=== PATIENT | female | born 1965 | race Hispanic/Latino ===

== ENCOUNTER → 2019-06-19 | Outpatient (CLI) | payer BC ==
--- NOTE | 2019-06-19 18:58 | REP ---
Right wrist four views: There is an impacted fracture of the distal radius. There is no dislocation. Mineralization joint spaces are normal. There are no calcifications or foreign bodies. Impression: Impacted fracture of the distal radius. Electronically Signed by Devon Lou MD 06/19/2019 06:49 P
== END ==
LOC: M WUC 18:29
PROVIDERS: ATTEND Physician Assistant
DX: S52.591A Other fractures of lower end of right radius, initial encounter for closed fracture (principal); X58.XXXA Exposure to other specified factors, initial encounter; Y92.89 Other specified places as the place of occurrence of the external cause